=== PATIENT | male | born 1975 | race American Indian/Alaskan Native ===

== ENCOUNTER 2019-06-27 09:40 | Emergency (ER) | payer SELFPAY ==
[2019-06-27] MEDS ORDERED: ONDANSETRON 4 MG ODT TAB PO ONE (12:43)
[2019-06-27] MEDS ORDERED: MECLIZINE 25 MG TAB PO ONE (12:43)
--- NOTE | 2019-06-27 12:58 | Emergency Department Report ---
ED Dizziness HPI - General Chief Complaint: Abdominal Pain Stated Complaint: KNOT IN ABD/COLD SX Time Seen by Provider: 06/27/19 12:14 Source: patient Mode of arrival: Ambulatory Limitations: No Limitations - History of Present Illness Initial Comments: 44-year-old -[place] male patient with history of diabetes complains of dizziness and nausea/vomiting 2 days. He describes the dizziness as a room spinning sensation and states it causes him to feel nauseous and vomited. He denies any head injury, vision changes, numbness/tingling/weakness, confusion, congestion, or history of vertigo. He states he has a mild headache and a 1/10 in severity that is intermittent. He denies any hematemesis or coffee-ground emesis, chest pain, or shortness of breath. She states the dizziness worsens with head movement and lifting his body up. MD Complaint: dizziness -: Sudden - Related Data Home Medications Medication Instructions Recorded Confirmed Last Taken Metoprolol [Lopressor] 50 mg PO QDAY 12/31/13 12/31/13 Unknown Previous Rx's Medication Instructions Recorded Last Taken Type EPINEPHrine [Epipen 2-Diogo] 0.3 mg IM ONCE PRN #1 ml 12/31/13 Unknown Rx Allergies Allergy/AdvReac Type Severity Reaction Status Date / Time venom-honey bee Allergy Swelling Verified 12/31/13 21:29 [bee venom (honey bee)] ED Review of Systems ROS: Stated complaint: KNOT IN ABD/COLD SX Other details as noted in HPI Comment: All other systems reviewed and negative ED Past Medical Hx - Past Medical History Previous Medical History?: Yes Hx Hypertension: Yes - Surgical History Past Surgical History?: No - Social History Smoking Status: Never Smoker Substance Use Type: None - Medications Home Medications: Home Medications Medication Instructions Recorded Confirmed Last Taken Type EPINEPHrine [Epipen 2-Diogo] 0.3 mg IM ONCE PRN #1 ml 12/31/13 Unknown Rx Metoprolol [Lopressor] 50 mg PO QDAY 12/31/13 12/31/13 Unknown History ED Physical Exam - General Limitations: No Limitations ED Course Vital Signs 06/27/19 06/27/19 09:46 11:40 Temperature 97.9 F Pulse Rate 77 Respiratory 18 18 Rate Blood Pressure 159/105 [Right] O2 Sat by Pulse 96 96 Oximetry Critical care attestation.: If time is entered above; I have spent that time in minutes in the direct care of this critically ill patient, excluding procedure time. ED Disposition Condition: Stable Referrals: PRIMARY CARE, [Primary Care Provider] - 3-5 Days
--- NOTE | 2019-06-27 13:04 | Emergency Department Report ---
ED Abdominal Pain HPI - General Chief Complaint: Abdominal Pain Stated Complaint: KNOT IN ABD/COLD SX Time Seen by Provider: 06/27/19 12:14 Source: patient Mode of arrival: Ambulatory Limitations: No Limitations - History of Present Illness Initial Comments: 44-year-old -[place] male patient complains of periumbilical pain and swelling 1 week. Patient states he has had the swelling in his belly button for the past 3 months after an episode of heavy lifting. 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 He states it began to hurt about 7 days ago and is worsening. He states his pain is a 8/10 in severity. He denies tr candido to reduce the area. He denies any nausea/vomiting or changes in his stools or constipation. MD Complaint: abdominal pain -: Sudden Location: periumbilical Migration to: no migration - Related Data Home Medications Medication Instructions Recorded Confirmed Last Taken Metoprolol [Lopressor] 50 mg PO QDAY 12/31/13 12/31/13 Unknown Previous Rx's Medication Instructions Recorded Last Taken Type EPINEPHrine [Epipen 2-Diogo] 0.3 mg IM ONCE PRN #1 ml 12/31/13 Unknown Rx Acetaminophen/Codeine [Tylenol 1 tab PO Q8H PRN #6 tab 06/27/19 Unknown Rx /Codeine # 3 tab] Pantoprazole [Protonix] 40 mg PO QDAY 30 Days #30 tablet 06/27/19 Unknown Rx Allergies Allergy/AdvReac Type Severity Reaction Status Date / Time venom-honey bee Allergy Swelling Verified 12/31/13 21:29 [bee venom (honey bee)] ED Review of Systems ROS: Stated complaint: KNOT IN ABD/COLD SX Other details as noted in HPI Comment: All other systems reviewed and negative Gastrointestinal: abdominal pain. denies: diarrhea, constipation, melena, hematochezia ED Past Medical Hx - Past Medical History Previous Medical History?: Yes Hx Hypertension: Yes - Surgical History Past Surgical History?: No - Social History Smoking Status: Never Smoker Substance Use Type: None - Medications Home Medications: Home Medications Medication Instructions Recorded Confirmed Last Taken Type EPINEPHrine [Epipen 2-Diogo] 0.3 mg IM ONCE PRN #1 ml 12/31/13 Unknown Rx Metoprolol [Lopressor] 50 mg PO QDAY 12/31/13 12/31/13 Unknown History Acetaminophen/Codeine [Tylenol 1 tab PO Q8H PRN #6 tab 06/27/19 Unknown Rx /Codeine # 3 tab] Pantoprazole [Protonix] 40 mg PO QDAY 30 Days #30 tablet 06/27/19 Unknown Rx ED Physical Exam - General Limitations: No Limitations General appearance: alert, in no apparent distress - Head Head exam: Present: atraumatic, normocephalic - Eye Eye exam: Present: normal appearance - ENT ENT exam: Present: mucous membranes moist - Neck Neck exam: Present: normal inspection - Respiratory Respiratory exam: Present: normal lung sounds bilaterally. Absent: respiratory distress - Cardiovascular Cardiovascular Exam: Present: regular rate, normal rhythm. Absent: systolic murmur, diastolic murmur, rubs, gallop - GI/Abdominal GI/Abdominal exam: Present: soft, tenderness, normal bowel sounds. Absent: distended, guarding (nonreducible umbilical hernia noted around 12:00 with sig nificant tenderness to palpation and without overlying erythema), rebound, rigid ED Course Vital Signs 06/27/19 06/27/19 09:46 11:40 Temperature 97.9 F Pulse Rate 77 Respiratory 18 18 Rate Blood Pressure 159/105 [Right] O2 Sat by Pulse 96 96 Oximetry ED Medical Decision Making - Lab Data Result diagrams: 06/27/19 12:49 06/27/19 12:49 Lab Results 06/27/19 06/27/19 06/27/19 Range/Units 12:49 12:49 13:06 WBC 7.6 (4.5-11.0) K/mm3 RBC 4.97 (3.65-5.03) M/mm3 Hgb 14.8 (11.8-15.2) gm/dl Hct 43.9 (35.5-45.6) % MCV 88 (84-94) fl MCH 30 (28-32) pg MCHC 34 (32-34) % RDW 13.9 (13.2-15.2) % Plt Count 412 (140-440) K/mm3 Lymph % (Auto) 25.6 (13.4-35.0) % Payne % (Auto) 7.7 H (0.0-7.3) % Eos % (Auto) 1.6 (0.0-4.3) % Baso % (Auto) 1.1 (0.0-1.8) % Lymph # 1.9 (1.2-5.4) K/mm3 Payne # 0.6 (0.0-0.8) K/mm3 Eos # 0.1 (0.0-0.4) K/mm3 Baso # 0.1 (0.0-0.1) K/mm3 Seg Neutrophils % 64.0 (40.0-70.0) % Seg Neutrophils # 4.9 (1.8-7.7) K/mm3 Sodium 139 (137-145) mmol/L Potassium 4.0 (3.6-5.0) mmol/L Chloride 102.8 (98-107) mmol/L Carbon Dioxide 24 (22-30) mmol/L Anion Gap 16 mmol/L BUN 25 H (9-20) mg/dL Creatinine 1.5 (0.8-1.5) mg/dL Estimated GFR > 60 ml/min BUN/Creatinine Ratio 17 % Glucose 132 H (75-100) mg/dL Calcium 9.4 (8.4-10.2) mg/dL Total Bilirubin 0.40 (0.1-1.2) mg/dL AST 21 (5-40) units/L ALT 13 (7-56) units/L Alkaline Phosphatase 55 (35-129) units/L Troponin T < 0.010 (0.00-0.029) ng/mL Total Protein 7.6 (6.3-8.2) g/dL Albumin 4.5 (3.9-5) g/dL Albumin/Globulin Ratio 1.5 % Lipase (13-60) units/L Urine Color Yellow (Yellow) Urine Turbidity Clear (Clear) Urine pH 5.0 (5.0-7.0) Ur Specific [place] 1.031 H (1.003-1.030) Urine Protein <15 mg/dl (Negative) mg/dL Urine Glucose (UA) Neg (Negative) mg/dL Urine Ketones Neg (Negative) mg/dL Urine Blood Mod (Negative) Urine Nitrite Neg (Negative) Urine Bilirubin Neg (Negative) Urine Urobilinogen < 2.0 (<2.0) mg/dL Ur Leukocyte Esterase Neg (Negative) Urine WBC (Auto) 1.0 (0.0-6.0) /HPF Urine RBC (Auto) 3.0 (0.0-6.0) /HPF U Epithel Cells (Auto) 1.0 (0-13.0) /HPF Urine Bacteria (Auto) 1+ (Negative) /HPF Urine Mucus Few /HPF 06/27/19 Range/Units 13:29 WBC (4.5-11.0) K/mm3 RBC (3.65-5.03) M/mm3 Hgb (11.8-15.2) gm/dl Hct (35.5-45.6) % MCV (84-94) fl MCH (28-32) pg MCHC (32-34) % RDW (13.2-15.2) % Plt Count (140-440) K/mm3 Lymph % (Auto) (13.4-35.0) % Payne % (Auto) (0.0-7.3) % Eos % (Auto) (0.0-4.3) % Baso % (Auto) (0.0-1.8) % Lymph # (1.2-5.4) K/mm3 Payne # (0.0-0.8) K/mm3 Eos # (0.0-0.4) K/mm3 Baso # (0.0-0.1) K/mm3 Seg Neutrophils % (40.0-70.0) % Seg Neutrophils # (1.8-7.7) K/mm3 Sodium (137-145) mmol/L Potassium (3.6-5.0) mmol/L Chloride (98-107) mmol/L Carbon Dioxide (22-30) mmol/L Anion Gap mmol/L BUN (9-20) mg/dL Creatinine (0.8-1.5) mg/dL Estimated GFR ml/min BUN/Creatinine Ratio % Glucose (75-100) mg/dL Calcium (8.4-10.2) mg/dL Total Bilirubin (0.1-1.2) mg/dL AST (5-40) units/L ALT (7-56) units/L Alkaline Phosphatase (35-129) units/L Troponin T (0.00-0.029) ng/mL Total Protein (6.3-8.2) g/dL Albumin (3.9-5) g/dL Albumin/Globulin Ratio % Lipase 102 H (13-60) units/L Urine Color (Yellow) Urine Turbidity (Clear) Urine pH (5.0-7.0) Ur Specific [place] (1.003-1.030) Urine Protein (Negative) mg/dL Urine Glucose (UA) (Negative) mg/dL Urine Ketones (Negative) mg/dL Urine Blood (Negative) Urine Nitrite (Negative) Urine Bilirubin (Negative) Urine Urobilinogen (<2.0) mg/dL Ur Leukocyte Esterase (Negative) Urine WBC (Auto) (0.0-6.0) /HPF Urine RBC (Auto) (0.0-6.0) /HPF U Epithel Cells (Auto) (0-13.0) /HPF Urine Bacteria (Auto) (Negative) /HPF Urine Mucus /HPF - Radiology Data Radiology results: report reviewed CT ABDOMEN AND PELVIS WITH CONTRAST HISTORY: Nonreducible umbilical hernia and abdominal pain. COMPARISON: No relevant comparison imaging. TECHNIQUE: Routine abdominal and pelvic CT exam performed following intravenous contrast administration. 100 cc of Omnipaque 300 was injected intravenously without incident and consent set was obtained prior to the administration of the contrast.. All CT scans at this location are performed using CT dose reduction for ALARA by means of automated exposure contr ol. FINDINGS: CT ABDOMEN: Lung Bases: No significant abnormality. Liver: No significant abnormality. Biliary: No significant abnormality. Stomach: Prominent gastric folds particularly in the fundus and body. Fluid distends the stomach. No mass or ulcer identified. Spleen: No significant abnormality. Unenlarged. Pancreas: No significant abnormality. Adrenals: No significant abnormality. Kidneys: No significant abnormality. Lymphatics: No lymphadenopathy. Vasculature: No significant abnormality. Bowel/Peritoneum: No significant abnormality. No free air. No free fluid. Normal appendix. Additional finding: A small fat-containing umbilical hernia. No inflammatory changes at the umbilicus and no bowel extending into the hernia. CT PELVIC: : No significant abnormality. Lymphatics: No lymphadenopathy. Osseous Structures: No aggressive appearing osseous lesions. Additional Findings: None IMPRESSION: 1. Gastric fold enlargement is nonspecific but may indicate gastritis or other significant pathology. 2. No acute cholecystitis, no signs of pancreatitis and no appendicitis. 3. A small fat-containing umbilical hernia with no associated inflammatory changes. - Medical Decision Making 44-year-old -[place] male patient complains of periumbilical pain and swelling 1 week. Patient does have small umbilical hernia and exam. Wbc's are normal. Lipase is mildly elevated at 106. Patient denies any alcohol abuse. Labs are otherwise without acute findings. CT abdomen shows small fat- containing umbilical hernia that is nonincarcerated and Gastric fold enlargement that is nonspecific but may indicate gastritis or other significant pathology. Vitals are normal and patient is afebrile. He does not have any epigastric tenderness palpation on exam. He admits to GERD that is uncontrolled due to no longer having Zantac available. He states he has been taking Rolaids without improvement. Discussed ways to improve GERD and foods to avoid. Patient is stable for discharge home and follow-up with gastroenterology within 3-5 days for further evaluation of abnormal findings on CAT scan. Description for Protonix given. He scuffed very strict return precautions in great detail with patient verbalizes understanding. Critical care attestation.: If time is entered above; I have spent that time in minutes in the direct care of this critically ill patient, excluding procedure time. ED Disposition Clinical Impression: Periumbilical hernia, Abnormal CT of the abdomen Disposition: DC-01 TO HOME OR SELFCARE Is pt being admited?: No Condition: Stable Instructions: Umbilical Hernia (ED), Gastritis (ED) Prescriptions: Pantoprazole [Protonix] 40 mg PO QDAY 30 Days #30 tablet Acetaminophen/Codeine [Tylenol /Codeine # 3 tab] 1 tab PO Q8H PRN #6 tab PRN Reason: Pain , Severe (7-10) Referrals: [facility] [Provider Group] - 3-5 Days
[2019-06-27 13:07] LABS: Basophils # (Auto) 0.1 K/mm3 (0.0-0.1); Basophils % (Auto) 1.1 % (0.0-1.8); Eosinophils # (Auto) 0.1 K/mm3 (0.0-0.4); Eosinophils % (Auto) 1.6 % (0.0-4.3); Hematocrit 43.9 % (35.5-45.6); Hemoglobin 14.8 gm/dl (11.8-15.2); Lymphocytes # (Auto) 1.9 K/mm3 (1.2-5.4); Lymphocytes % (Auto) 25.6 % (13.4-35.0); Mean Corpuscular HGB Conc 34 % (32-34); Mean Corpuscular Volume 88 fl (84-94); Monocytes # (Auto) 0.6 K/mm3 (0.0-0.8); Monocytes % (Auto) 7.7 % (0.0-7.3); Platelet Count 412 K/mm3 (140-440); Red Blood Count 4.97 M/mm3 (3.65-5.03); Red Cell Distribution Width 13.9 % (13.2-15.2)
[2019-06-27] MEDS ORDERED: MORPHINE 4 MG/1 ML INJ IV ONE (13:18)
[2019-06-27] MEDS ORDERED: ONDANSETRON 4 MG/2 ML INJ IV ONE (13:18)
[2019-06-27 13:23] LABS: Bacteria,Urine 1+ /HPF (Negative); Bilirubin,Urine NEG (Negative); Blood,Urine MOD (Negative); Color,Urine Yellow (Yellow); Mucus,Urine FEW /HPF; Protein,Urine <15 mg/dL mg/dL (Negative); Urobilinogen,Urine < 2.0 mg/dL (<2.0)
[2019-06-27 13:34] LABS: Alanine Aminotransferase 13 units/L (7-56); Albumin 4.5 g/dL (3.9-5); BUN/Creatinine Ratio 17; Blood Urea Nitrogen 25 mg/dL (9-20); Calcium 9.4 mg/dL (8.4-10.2); Hemolysis Index 4
--- NOTE | 2019-06-27 15:47 | Cat Scan Report ---
CT ABDOMEN AND PELVIS WITH CONTRAST HISTORY: Nonreducible umbilical hernia and abdominal pain. COMPARISON: No relevant comparison imaging. TECHNIQUE: Routine abdominal and pelvic CT exam performed following intravenous contrast administrat ion. 100 cc of Omnipaque 300 was injected intravenously without incident and consent set was obtained prior to the administration of the contrast.. All CT scans at this location are performed using CT d ose reduction for ALARA by means of automated exposure control. FINDINGS: CT ABDOMEN: Lung Bases: No significant abnormality. Liver: No significant abnormality. Biliary: No significant abnormality. Stomach: Prominent gastric folds particularly in the fundus and body. Fluid distends the stomach. No mass or ulcer identified. Spleen: No significant abnormality. Unenlarged. Pancreas: No significant abnormality. Adrenals: No significant abnormality. Kidneys: No significant abnormality. Lymphatics: No lymphadenopathy. Vasculature: No significant abnormality. Bowel/Peritoneum: No significant abnormality. No free air. No free fluid. Normal appendix. Additional finding: A small fat-containing umbilical hernia. No inflammatory changes at the umbilicus and no bowel extending into the hernia. CT PELVIC: : No significant abnormality. Lymphatics: No lymphadenopathy. Osseous Structures: No aggressive appearing osseous lesions. Additional Findings: None IMPRESSION: 1. Gastric fold enlargement is nonspecific but may indicate gastritis or other significant pathology. 2. No acute cholecystitis, no signs of pancreatitis and no appendicitis. 3. A small fat-containing umbilical hernia with no associated inflammatory changes. Signer Name: Balwinder Bird MD Signed: 06/27/2019 3:42 PM Workstation Name: [id number]
[2019-06-27 16:55] VITALS: BP 141/92
== END 2019-06-27 16:54 | disposition home or self-care (01) ==
LOC: ED 09:40
DX: K42.9 Umbilical hernia without obstruction or gangrene (principal); I10 Essential (primary) hypertension; Z79.899 Other long term (current) drug therapy; Z91.030 Bee allergy status
CPT/HCPCS: 36415; 74177; 80053; 81001; 83690; 84484; 85025; 96374; 96375; 99284; J2270; J2405; Q9967; Q0162